=== PATIENT | male | born 1990 | race Caucasian/White ===

== ENCOUNTER → 2016-05-28 | Day surgery (SDC) | payer BC ==
[~2016-05-28] VITALS: Ht 177.8 cm; Wt 84.7 kg
[~2016-05-28] MED LIST: *ONDANSETRON 4 MG VIAL PERIprocedural Use ONLY ONE; *PROMETHAZINE 25 MG/ML VIAL PERIprocedural use ONLY ONE; *morphine SULFATE 8 MG/ML PERIprocedure ONLY ONE; ACETAMINOPHEN 1000 MG/100 ML VIAL IV ONE; ALBU17I INH; ALBU2.5I INH; ALBU8I INH; ALBUAER3 INH; AUGM875T PO; BUPIVACAINE HCL PF 0.5% 30 ML VIAL ONE; CHLORHEXIDINE GLUCONATE 4% SOLN 120 ML BTL TOP SCH; DO NOT ADM ANY ANTICOAGULANT DRUGS XX PRN; HYDR-3583 PO; HYDROmorphone HCL PF 2 MG/ML VIAL ONE; INSULIN HUMAN REGULAR 1,000 UNITS/10 ML VIAL SQ PRN; KETOROLAC TROMETHAMINE 30 MG/ML (IVP) VIAL IVP ONE; LACTATED RINGER'S 1000 ML INJ 1,000 ML IV ONE; LACTATED RINGER'S 1000 ML IV SCH; LIDOCAINE HCL 2% 50 ML VIAL ONE; METOPROLOL TARTRATE 25 MG TAB PO PRN; MIDAZOLAM HCL 2 MG/2 ML VIAL ONE; MORPHINE SULFATE 4 MG/ML INJ IV PUSH PRN; ONDANSETRON HCL 4 MG/2 ML VIAL IV PRN; ONDANSETRON HCL 4 MG/2 ML VIAL IV PUSH ONE; PERC5TAB12 PO; PRED20 PO; PROPOFOL 200 MG/20 ML AMP IV ONE; SODIUM CHLOR 0.9% 250 ML INJ 250 ML ONE; SODIUM CHLORID 0.9% 500 ML IV SCH; SODIUM CHLORIDE 0.9% FLUSH 5 ML FLUSH IVF PRN; SODIUM CHLORIDE 0.9% FLUSH 5 ML FLUSH IVF SCH; VANCOMYCIN 1000 MG/NS 250 ML (for <70 kg) IV SCH; VANCOMYCIN HCL 1000 MG VIAL ONE; ceFAZolin 2 GM PREMIX 50 ML IV SCH; ceFAZolin INJ 1,000 MG VIAL ONE; oxyCODONE/ACETAMINOPHEN 5 MG/325 MG TAB PO PRN
[2016-05-28 10:11] VITALS: BP 138/84; PULSE 98; RESP 16; TEMP 98; O2SAT 96
--- NOTE | 2016-05-28 13:13 | PD.OP ---
cc: Atif Tolbert Jr., MD Operative Report Date of Surgery: May 28, 2016 Preoperative Diagnosis: Left ring finger middle phalanx displaced comminuted unstable fracture Postoperative Diagnosis: Same Procedure: Closed reduction and pinning left ring finger middle phalanx Anesthesia: Gen. Surgeon: Atif Tolbert Bearing Press Machine Operator(s): Jason Rankin PA-C The surgical procedure was assisted by my physician enrichment assistant. My physician enrichment assistant presence was necessary throughout this case for the manipulation and positioning of the surgical extremity. My physician enrichment assistant was assisting me throughout the duration of this procedure. The skill set of a physician enrichment assistant was medically necessary to complete this procedure. During the surgical case, the surgical instruments inspector was working at the back table and the physician enrichment assistant was directly assisting me. Resident Surgeon: None Operation and Findings: Patient was seen and evaluated preoperatively and found to have a closed left ring finger middle phalanx comminuted extra-articular fracture. Informed consent was obtained after detailed discussion of risk and benefits including bleeding, infection, injury to arteries, nerves, and blood vessels, weakness and numbness of hand, and tendon rupture. Informed consent was obtained. Patient received IV antibiotics prior to incision. Timeout procedure was performed. Operative extremity was prepped with alcohol followed by Hibiclens and draped usual sterile fashion. A small longitudinal incision was made dorsal to the middle phalanx. A [place] was used as a reduction tool. Under fluoroscopy longitudinal traction was applied and the fracture was reduced within acceptable alignment. There was significant comminution of the metadiaphysis. Fluoroscopy confirmed appropriate alignment of the fracture. A 4 mm K wire was used in an oblique fashion across the metacarpal shaft to hold the reduction. Another small K wire was used perpendicular to the shaft in order to hold the reduction of the metaphyseal comminution. Final fluoroscopy revealed excellent of fracture with well-placed hardware. The wound was thoroughly irrigated with sterile saline. Closed with 3-0 nylon. Sterile dressings were applied with Xeroform, 4 x 4, soft roll, and a well padded ulna gutter splint. Patient was awakened and transferred to recovery room in stable condition POSTP-OP PLAN OF ACTIVITY Antibiotics: none Weight bearing status: NWB Dressing: Do not remove splints/cast. Dispo: expected discharge home from PACU today Atif Tolbert Jr., MD May 28, 2016 13:13
[2016-05-28 13:41] VITALS: BP 149/86; PULSE 86; RESP 18; TEMP 97.8; O2SAT 100
== END | disposition home or self-care (01) ==
LOC: HSDC 09:43
PROVIDERS: ATTEND Orthopaedic Surgery
DX: S62.625A Displaced fracture of middle phalanx of left ring finger, initial encounter for closed fracture (principal); Y04.2XXA Assault by strike against or bumped into by another person, initial encounter
CPT/HCPCS: 01820; 26727; 76000; 86850; 86900; 86901; J0131; J0690; J1170; J1885; J2250; J2270; J2405; J2550; J3010; J3370; J7050; J7120; 92950

== ENCOUNTER 2016-07-01 00:29 | Emergency (ER) | payer BC ==
[~2016-07-01] VITALS: Ht 172.7 cm; Wt 75.0 kg
[~2016-07-01 00:29] MED LIST changes: -*ONDANSETRON 4 MG VIAL PERIprocedural Use ONLY ONE; -*PROMETHAZINE 25 MG/ML VIAL PERIprocedural use ONLY ONE; -*morphine SULFATE 8 MG/ML PERIprocedure ONLY ONE; -ACETAMINOPHEN 1000 MG/100 ML VIAL IV ONE; -ALBU17I INH; -ALBU2.5I INH; -ALBU8I INH; -AUGM875T PO; -BUPIVACAINE HCL PF 0.5% 30 ML VIAL ONE; -CHLORHEXIDINE GLUCONATE 4% SOLN 120 ML BTL TOP SCH; -DO NOT ADM ANY ANTICOAGULANT DRUGS XX PRN; -HYDROmorphone HCL PF 2 MG/ML VIAL ONE; -INSULIN HUMAN REGULAR 1,000 UNITS/10 ML VIAL SQ PRN; -KETOROLAC TROMETHAMINE 30 MG/ML (IVP) VIAL IVP ONE; -LACTATED RINGER'S 1000 ML INJ 1,000 ML IV ONE; -LACTATED RINGER'S 1000 ML IV SCH; -LIDOCAINE HCL 2% 50 ML VIAL ONE; -METOPROLOL TARTRATE 25 MG TAB PO PRN; -MIDAZOLAM HCL 2 MG/2 ML VIAL ONE; -MORPHINE SULFATE 4 MG/ML INJ IV PUSH PRN; -ONDANSETRON HCL 4 MG/2 ML VIAL IV PRN; -ONDANSETRON HCL 4 MG/2 ML VIAL IV PUSH ONE; -PRED20 PO; -PROPOFOL 200 MG/20 ML AMP IV ONE; -SODIUM CHLOR 0.9% 250 ML INJ 250 ML ONE; -SODIUM CHLORID 0.9% 500 ML IV SCH; -SODIUM CHLORIDE 0.9% FLUSH 5 ML FLUSH IVF PRN; -SODIUM CHLORIDE 0.9% FLUSH 5 ML FLUSH IVF SCH; -VANCOMYCIN 1000 MG/NS 250 ML (for <70 kg) IV SCH; -VANCOMYCIN HCL 1000 MG VIAL ONE; -ceFAZolin 2 GM PREMIX 50 ML IV SCH; -ceFAZolin INJ 1,000 MG VIAL ONE; -oxyCODONE/ACETAMINOPHEN 5 MG/325 MG TAB PO PRN
[2016-07-01 00:31] VITALS: BP 121/64; PULSE 96; RESP 18; TEMP 98.3; O2SAT 96
[2016-07-01] MEDS ORDERED: oxyCODONE/ACETAMINOPHEN 5 MG/325 MG TAB PO ONE (01:00)
--- NOTE | 2016-07-01 01:02 | PD ---
HPI Chief Complaint: Fall Time Seen by Provider: 00:54 Travel History International Travel<30 days: No Contact w/Intl Traveler<30days: No Traveled to known affect area: No History of Present Illness HPI Diagnoses a 26-year-old male with history of asthma, left hand/finger injury, who presents today with complaints of left eye pain and bilateral knee pain after falling down the stairs. He states this happened 3 or 4 hours ago. Patient states he was walking his dogs and he pulled him down the stairs. He denies loss of conscious. He presents here with ecchymosis of his left eye as well as abrasions to his bilateral knees. He denies any neck pain. He denies any head pain other than his eye. There are no other complaints time my examination. The patient reports his tetanus is up-to-date. PFSH Past Medical History Asthma: Yes Blood Disorders: No Diminished Hearing: No Respiratory: Yes (asthma) Immunizations Current: Yes Past Surgical History AICD: No Joint Replacement: No Pacemaker: No Social History Alcohol Use: No Tobacco Use: No Substance Use: No Allergies-Medications (Allergen,Severity, Reaction): Coded Allergies: No Known Allergies (Verified , 07/01/16) Reported Meds & Prescriptions Reported Meds & Active Scripts Active Augmentin (Amoxicillin-Clavulanate) 875-125 mg Tab 875 Mg PO BID not for use in CrCl <30 ml/min. Percocet (Oxycodone-Acetaminophen) 5-325 mg Tab 1 Tab PO Q6H PRN Percocet (Oxycodone-Acetaminophen) 5-325 mg Tab 1 Tab PO Q4H PRN Reported Hydrocodone-Acetaminophen 10-325 mg Tab 1 Tab PO Q4H PRN Proair Hfa 8.5 GM Inh (Albuterol Sulfate) 90 Mcg/Act Aer 2 Puff INH Q4-6H PRN 108 mcg/actuation Review of Systems Except as stated in HPI: all other systems reviewed are Neg Eyes: No: Diploplia HENT: Positive: Other (left orbital pain), No: Headaches Respiratory: No: Cough, Shortness of Breath Gastrointestinal: No: Nausea, Vomiting, Abdominal Pain Musculoskeletal: Positive: Pain (bilateral knee with abrasions) Skin: Positive Other (abrasions to his bilateral knees.) Physical Exam Narrative GENERAL: Well-developed well-nourished gentleman in no acute rest her distress. The patient has obvious left periorbital ecchymosis. SKIN: Warm and dry. HEAD: No scalp or skull deformities on palpation.. Normocephalic. EYES: Pupils equal and round. No scleral icterus. No injection or drainage. Extraocular muscles were intact. The patient has periorbital ecchymosis on his left eye. ENT: No nasal bleeding or discharge. Mucous membranes pink and moist. NECK: Trachea midline. Supple CARDIOVASCULAR: Regular rate and rhythm. No murmur appreciated. RESPIRATORY: No accessory muscle use. Clear to auscultation bilaterally. GASTROINTESTINAL: Abdomen soft, non-tender, nondistended. MUSCULOSKELETAL: No obvious deformities. There is multiple abrasions to his bilateral knee areas. The patient's states that they are from 4 hours ago although they do have an older appearance. There is full range of motion of his knees. No defect. NEUROLOGICAL: Awake and alert. No obvious cranial nerve deficits. Motor grossly within normal limits. Normal speech. Data Data Last Documented VS Vital Signs Date Time Temp Pulse Resp B/P Pulse Ox O2 Delivery O2 Flow Rate FiO2 07/01/16 00:44 18 07/01/16 00:31 98.3 96 121/[address] Brain W/O Iv Contrast(Rout) (07/01/16 00:54) Knee, Ltd (1 Or 2vws) (07/01/16 00:54) Knee, Ltd (1 Or 2vws) (07/01/16 00:54) Oxycodone-Acetamin 5-325 Mg (Percocet (07/01/16 01:00) Ct Facial Bones W/O Iv Cont (07/01/16 01:44) [facility] Medical Decision Making Medical Screen Exam Complete: Yes Emergency Medical Condition: Yes Interpretation(s) Last [address] 07/01/16 0144 Signed Impressions: Service Date/Time: Friday, July 01, 2016 02:03 - CONCLUSION: 1. Minimally displaced inferior orbital wall fracture on the left. 2. Chronic sinus disease , leftward deviation of the nasal septum and possible nasal polyposis versus blood in the nasal passage. 3. Nondisplaced fracture through the nasal bridge. Nazario Arana MD Knee X-Ray 07/01/16 0054 Signed Impressions: Service Date/Time: Friday, July 01, 2016 01:23 - CONCLUSION: Negative exam. No fracture or effusion. Nazario Arana MD Knee X-Ray 07/01/1653 Signed Impressions: Service Date/Time: Friday, July 01, 2016 01:26 - CONCLUSION: Negative exam. No fracture or effusion. Nazario Arana MD Head CT 07/01/1653 Signed Impressions: Service Date/Time: Friday, July 01, 2016 01:11 - CONCLUSION: 1. No acute intracranial process or trauma. 2. Soft tissue density in the inferior left ethmoid air cells with a single foci of air in the inferomedial left orbit. Cannot exclude a fracture through the medial orbital wall/lamina papyracea. If patient has left-sided facial symptoms, may consider a dedicated CT scan of the facial bones. Nazario Arana MD Differential Diagnosis Skull fracture versus contusion versus knee fracture Narrative Course 26-year-old gentleman who reports that he fell down the stairs while walking his dogs. The patient reported it happened 3-4 hours ago. The patient has abrasions to his knees that appear older than 3-4 hours ago. X-rays of the knee show no evidence of acute fracture dislocation or effusions. The patient reports his tetanus shot is up-to-date. The patient also had left periorbital ecchymosis. A CT scan of the brain shows no evidence of acute intracranial upper mouth's however there was questionable inferior orbital fracture. Formal CT facial bones was ordered which confirms a minimally displaced inferior orbital bone fracture. There is also a nondisplaced nasal bone fracture. The patient will have a mandatory consult from X official. He is instructed to not blow his nose. He is instructed to follow up with the next facial surgeon after he gets his mandatory referral. Diagnosis Primary Impression: Fracture of inferior orbital wall Additional Impressions: nondisplaced nasal bridge fracture bilateral knee abrasions/contusions mechanical fall Additional Instructions: There will be a mandatory referral placed for a maxillofacial surgeon. A nurse will call you with the appointment. Do not blow your nose. Take antibiotics as prescribed. Med/Other Pt SpecificInfo: Prescription(s) given Scripts Amoxicillin-Clavulanate (Augmentin)875-125 mg [id number] Mg PO BID #10 TAB Ref 0 not for use in CrCl <30 ml/min. Prov:Anival Howard MD 07/01/16 Oxycodone-Acetaminophen (Percocet)5-325 mg Tab1 Tab PO Q6H PRN (PAIN) #4 TAB Ref 0 Prov:Anival Howard MD 07/01/16 Disposition: 01 DISCHARGE HOME Condition: Stable Anival Howard MD Jul 01, 2016 01:02
--- NOTE | 2016-07-01 01:33 | RADRPT ---
EXAM DATE/TIME: 07/01/2016 01:11 [facility] COMPARISON: No previous studies available for comparison. INDICATIONS : Trauma, fall. RADIATION DOSE: 37.04 CTDIvol (mGy) MEDICAL HISTORY : None SURGICAL HISTORY : None. ENCOUNTER: Initial ACUITY: 1 day PAIN SCALE: 2/10 LOCATION: cranial TECHNIQUE: Multiple contiguous axial images were obtained of the head. Using automated exposure control and adj ustment of the mA and/or kV according to patient size, radiation dose was kept as low as reasonably a chievable to obtain optimal diagnostic quality images. FINDINGS: CEREBRUM: The ventricles are normal for age. No evidence of midline shift, mass lesion, hemorrhage or acute in farction. No extra-axial fluid collections are seen. POSTERIOR FOSSA: The cerebellum and brainstem are intact. The 4th ventricle is midline. The cerebellopontine angle i s unremarkable. EXTRACRANIAL: There is soft tissue density identified in the inferior left ethmoid air cells. There is also a dot o f air along the inferomedial aspect of the left orbit possibly representing a fracture of the adjacen t lamina papyracea. SKULL: The calvaria is intact. No evidence of skull fracture. CONCLUSION: 1. No acute intracranial process or trauma. 2. Soft tissue density in the inferior left ethmoid air cells with a single foci of air in the infero medial left orbit. Cannot exclude a fracture through the medial orbital wall/lamina papyracea. If pat ient has left-sided facial symptoms, may consider a dedicated CT scan of the facial bones. Nazario Arana MD on July 01, 2016 at 1:28 Board Certified Radiologist. This report was verified electronically.
--- NOTE | 2016-07-01 01:51 | RADRPT ---
EXAM DATE/TIME: 07/01/2016 01:23 [facility] COMPARISON: KNEE LEFT LTD (1 OR 2VWS), July 01, 2016, 1:26. INDICATIONS : Bilateral knee lacerations from a fall. MEDICAL HISTORY : None. SURGICAL HISTORY : None. ENCOUNTER: Initial ACUITY: 1 day PAIN SCORE: 3/10 LOCATION: Bilateral knees FINDINGS: Two view examination of the right knee demonstrates no evidence of fracture or dislocation. Bony min eralization is normal. The suprapatellar soft tissues have a normal configuration. A prominent fabel la in the posterolateral joint space. CONCLUSION: Negative exam. No fracture or effusion. Nazario Arana MD on July 01, 2016 at 1:47 Board Certified Radiologist. This report was verified electronically.
--- NOTE | 2016-07-01 01:52 | RADRPT ---
EXAM DATE/TIME: 07/01/2016 01:26 [facility] COMPARISON: KNEE RIGHT LTD (1 OR 2 VWS), July 01, 2016, 1:23. INDICATIONS : Bilateral knee lacerations from a fall. MEDICAL HISTORY : None. SURGICAL HISTORY : None. ENCOUNTER: Initial ACUITY: 1 day PAIN SCORE: 3/10 LOCATION: Bilateral knees FINDINGS: Two view examination of the left knee demonstrates no evidence of fracture or dislocation. Bony mine ralization is normal. The suprapatellar soft tissues have a normal configuration. CONCLUSION: Negative exam. No fracture or effusion. Nazario Arana MD on July 01, 2016 at 1:49 Board Certified Radiologist. This report was verified electronically.
--- NOTE | 2016-07-01 02:34 | RADRPT ---
EXAM DATE/TIME: 07/01/2016 02:03 [facility] COMPARISON: No previous studies available for comparison. INDICATIONS : Trauma, rule out orbital wall fracture. RADIATION DOSE: 36.69 CTDIvol (mGy) MEDICAL HISTORY : None SURGICAL HISTORY : None. ENCOUNTER: Initial ACUITY: 1 day PAIN SCORE: 3/10 LOCATION: facial TECHNIQUE: Volumetric scanning of the facial bones was performed. Using automated exposure control and adjustme nt of the mA and/or kV according to patient size, radiation dose was kept as low as reasonably achiev able to obtain optimal diagnostic quality images. FINDINGS: ORBITS: Inferior orbital wall fracture without muscular entrapment. NASAL BONE: Nondisplaced nasal bone fracture ZYGOMATIC ARCHES: Symmetric without evidence of fracture. SINUSES: Mucoperiosteal thickening within the maxillary antrum and ethmoid air cells bilaterally, left greater than right.. NASAL CAVITY: Leftward deviation of the nasal septum. Soft tissue density in the nasal cavity may be related to rec ent trauma although findings could represent nasal polyposis as well. SOFT TISSUES: No radiopaque foreign bodies seen. No soft-tissue swelling is seen. INTRACRANIAL: No intracranial air seen. CRIBIFORM PLATE: Grossly intact. CONCLUSION: 1. Minimally displaced inferior orbital wall fracture on the left. 2. Chronic sinus disease, leftward deviation of the nasal septum and possible nasal polyposis versus blood in the nasal passage. 3. Nondisplaced fracture through the nasal bridge. Nazario Arana MD on July 01, 2016 at 2:27 Board Certified Radiologist. This report was verified electronically.
[2016-07-01] MEDS ORDERED: AUGM875T PO (03:08)
[2016-07-01] MEDS ORDERED: PERC5TAB12 PO (03:08)
[2016-07-01] MEDS ORDERED: ACETAMINOPHEN/HYDROcodone 325 MG/5 MG TAB PO ONE (03:15)
== END 2016-07-01 03:29 | disposition home or self-care (01) ==
LOC: NEPE 00:29
DX: S02.2XXA Fracture of nasal bones, initial encounter for closed fracture (principal); S80.211A Abrasion, right knee, initial encounter; S80.212A Abrasion, left knee, initial encounter; Y93.K1 Activity, walking an animal; Y93.9 Activity, unspecified; Y92.89 Other specified places as the place of occurrence of the external cause; Y99.8 Other external cause status; W10.8XXA Fall (on) (from) other stairs and steps, initial encounter
CPT/HCPCS: 70450; 70486; 73560; 99283

== ENCOUNTER 2016-07-01 06:00 | Emergency (ER) | payer BC ==
[~2016-07-01] VITALS: Ht 172.7 cm; Wt 75.0 kg
[~2016-07-01 06:00] MED LIST changes: +AUGM875T PO
[2016-07-01 06:01] VITALS: BP 126/68; PULSE 92; RESP 20; TEMP 98; O2SAT 98
--- NOTE | 2016-07-01 06:17 | PD ---
HPI Chief Complaint: Pain: Acute or Chronic Time Seen by Provider: 06:13 Travel History International Travel<30 days: No Contact w/Intl Traveler<30days: No Traveled to known affect area: No History of Present Illness HPI Patient is a 26-year-old male who was seen early tonight by my partner Dr. Howard for facial fractures. He was discharged with a prescription for 4 Percocets. He went to a local pharmacy to fill them and Dr. Howard received a call that he had allegedly falsified a Percocet prescription and added a 0 onto it. Patient has a recent history of forearm fractures be followed by Geraldo Mosqueda. E4 shows that he had a prescription for 90 Percocet 5 tablets filled on May 30. Patient on arrival states he still in significant pain and was told by the pharmacy to come back to the emergency department for a prescription for new medicine. He states nothing else is change and sees left he just has pain. Denies any additional injuries. Patient states the injury occurred when he was walking his dog down the stairs and the dog pulled him forward in the leash tied that his arm and he fell forward down the stairs. This happened approximately 6 hours ago. PFSH Past Medical History Asthma: Yes Blood Disorders: No Diminished Hearing: No Respiratory: Yes (asthma) Immunizations Current: Yes Influenza Vaccination: No Past Surgical History AICD: No Joint Replacement: No Pacemaker: No Social History Alcohol Use: No Tobacco Use: No Substance Use: No Allergies-Medications (Allergen,Severity, Reaction): Coded Allergies: No Known Allergies (Verified , 07/01/16) Reported Meds & Prescriptions Reported Meds & Active Scripts Active Augmentin (Amoxicillin-Clavulanate) 875-125 mg Tab 875 Mg PO BID not for use in CrCl <30 ml/min. Percocet (Oxycodone-Acetaminophen) 5-325 mg Tab 1 Tab PO Q6H PRN Percocet (Oxycodone-Acetaminophen) 5-325 mg Tab 1 Tab PO Q4H PRN Reported Hydrocodone-Acetaminophen 10-325 mg Tab 1 Tab PO Q4H PRN Proair Hfa 8.5 GM Inh (Albuterol Sulfate) 90 Mcg/Act Aer 2 Puff INH Q4-6H PRN 108 mcg/actuation Review of Systems Except as stated in HPI: all other systems reviewed are Neg Physical Exam Narrative GENERAL: Well-nourished, well-developed patient. SKIN: Warm and dry. He has bilateral abrasions to the knees. HEAD: Normocephalic. Has periorbital ecchymosis on the left eye. No swelling is appreciated. EYES: No scleral icterus. No injection or drainage. NECK: Supple, trachea midline. No JVD or lymphadenopathy. CARDIOVASCULAR: Regular rate and rhythm without murmurs, gallops, or rubs. RESPIRATORY: Breath sounds equal bilaterally. No accessory muscle use. GASTROINTESTINAL: Abdomen soft, non-tender, nondistended. MUSCULOSKELETAL: No cyanosis, or edema. BACK: Nontender without obvious deformity. No CVA tenderness. Data Data Last Documented VS Vital Signs Date Time Temp Pulse Resp B/P Pulse Ox O2 Delivery O2 Flow Rate FiO2 07/01/16 06:01 98.0 92 20 126/68 98 MDM Medical Decision Making Medical Screen Exam Complete: Yes Emergency Medical Condition: Yes Differential Diagnosis Malingering, opiate addiction, facial fractures, facial pain, forearm fracture. Narrative Course Patient was roomed in the emergency department. Nurses of come to me and stated that if he does not get a pain prescription he will re-sign in for an asthma exacerbation until he does get a pain prescription. I informed the patient that he has allegedly committed a felon in [facility] as it is illegal to falsify prescription for narcotics. He states he did no such thing and he has at all on tape. I told him that it is point he needs to get up at the pharmacy. Given his E force of 90 tablets filled for Percocet and in early May I'm disinclined to give him any more narcotics at this time. He appears well and in no apparent distress. I did offer him ibuprofen 600 mg in the emergency department and told him I would not be writing him any more scripts. He states to me "I didn't falsify any records to proceed". At which time he eloped from the room and I asked security to escort him from the hospital. Diagnosis Primary Impression: Face pain Disposition: 01 DISCHARGE HOME Condition: Stable Seymour Guajardo MD Jul 01, 2016 06:17
== END 2016-07-01 06:20 | disposition home or self-care (01) ==
LOC: NEPC 06:00
DX: R51 Headache (principal)
CPT/HCPCS: 99283

== ENCOUNTER 2017-08-21 05:04 | Emergency (ER) | payer SELFPAY ==
[~2017-08-21] VITALS: Ht 177.8 cm; Wt 88.0 kg
[2017-08-21 05:07] VITALS: BP 136/65; PULSE 117; RESP 18; TEMP 98.4; O2SAT 97
[2017-08-21] MEDS ORDERED: HYDR1OIN6 TOPICAL (05:40)
[2017-08-21] MEDS ORDERED: diphenhydrAMINE HCL 50 MG CAP PO ONE (05:45)
--- NOTE | 2017-08-21 05:45 | PD ---
HPI Chief Complaint: Edema Time Seen by Provider: 05:31 Travel History International Travel<30 days: No Contact w/Intl Traveler<30days: No Traveled to known affect area: No History of Present Illness HPI 27-year-old white male presents emergency department with a 1 day history of left cheek swelling. He does not know any causative event or insect bite. He states that he had noticed an area of redness, swelling and mild pruritus under his left eye. He has been rubbing it. He denies any vision changes. No ocular pain. No glasses or contacts. He has had no fever chills. No recent illness. No other rashes or lesions. PFSH Past Medical History Asthma: Yes Blood Disorders: No Diminished Hearing: No Respiratory: Yes (asthma) Immunizations Current: Yes Tetanus Vaccination: < 5 Years Influenza Vaccination: No Past Surgical History Surgical History: No Previous Surgery AICD: No Joint Replacement: No Pacemaker: No Social History Alcohol Use: No Tobacco Use: Yes Substance Use: No Allergies-Medications (Allergen,Severity, Reaction): Coded Allergies: No Known Allergies (Verified Adverse Reaction, Unknown, 08/21/17) Reported Meds & Prescriptions Reported Meds & Active Scripts Active Augmentin (Amoxicillin-Clavulanate) 875-125 mg Tab 875 Mg PO BID not for use in CrCl <30 ml/min. Percocet (Oxycodone-Acetaminophen) 5-325 mg Tab 1 Tab PO Q6H PRN Percocet (Oxycodone-Acetaminophen) 5-325 mg Tab 1 Tab PO Q4H PRN Reported Hydrocodone-Acetaminophen 10-325 mg Tab 1 Tab PO Q4H PRN Proair Hfa 8.5 GM Inh (Albuterol Sulfate) 90 Mcg/Act Aer 2 Puff INH Q4-6H PRN 108 mcg/actuation Review of Systems General / Constitutional: No: Fever Eyes: No: Visual changes HENT: No: Headaches Cardiovascular: No: Chest Pain or Discomfort Respiratory: No: Shortness of Breath Gastrointestinal: No: Abdominal Pain Genitourinary: No: Dysuria Musculoskeletal: No: Pain Skin: Positive Rash, Positive Itching Neurologic: No: Weakness Psychiatric: No: Depression Endocrine: No: Polydipsia Hematologic/Lymphatic: No: Easy Bruising Physical Exam Narrative GENERAL: Well-developed, well-nourished in no acute distress. Nontoxic appearing. HEAD: Normocephalic, patient has mild swelling to the left cheek just underneath the lower eyelid. It is mildly erythematous but no warmth. There is some boggy edema. No tenderness. EYES: Pupils equal round and reactive. Extraocular motions intact. No scleral icterus. No injection or drainage. ENT: TMs clear without erythema. The external auditory canals clear. Nose: clear . Posterior pharynx is pink and moist. No tonsillar edema or exudate. Uvula midline. Airway patent. NECK: Trachea midline.Supple, nontender, moves head freely. No central bony tenderness or spasm. CARDIOVASCULAR: Regular rate and rhythm without murmurs, gallops, or rubs. RESPIRATORY: Clear to auscultation. Breath sounds equal bilaterally. No wheezes , rales, or rhonchi. GASTROINTESTINAL: Abdomen soft, non-tender, nondistended. No hepato-splenomegaly , or palpable masses. No guarding. EXTREMITIES: No clubbing, cyanosis, or edema. No joint tenderness, effusion, or edema noted. BACK: Nontender without deformity or crepitance. No flank tenderness. Data Data Last Documented VS Vital Signs Date Time Temp Pulse Resp B/P (MAP) Pulse Ox O2 Delivery O2 Flow Rate FiO2 08/21/17 05:07 98.4 117 18 136/65 (88) 97 Orders Orders Diphenhydramine (Benadryl) (08/21/17 05:45) Ed Discharge Order (08/21/17 05:37) [facility] Medical Decision Making Medical Screen Exam Complete: Yes Emergency Medical Condition: Yes Medical Record Reviewed: Yes Differential Diagnosis MDM: High Differential diagnoses: Abscess, folliculitis, cellulitis, lymphangitis, abrasion, contact dermatitis Narrative Course Patient is given Benadryl 50 mg p.o. Patient appears to have a local allergic reaction. Diagnosis Primary Impression: Local allergic reaction Patient Instructions: General Instructions Additional Instructions: Rest. Cool compress. 50 mg of Benadryl every 6 hours. Hydrocortisone cream. Recheck with a primary care doctor in the next 2-3 days. Return to the ER if any problems. Med/Other Pt SpecificInfo: Prescription(s) given Scripts Hydrocortisone Acetate (Hydrocortisone) 1 % Oint...g. 1 APPLIC TOPICAL TID, #1 Prov: Barrett Amaya MD 08/21/17 Disposition: 01 DISCHARGE HOME Condition: Stable Maxim Kothari Aug 21, 2017 05:45
== END 2017-08-21 06:03 | disposition home or self-care (01) ==
LOC: NEPD 05:04
DX: T78.40XA Allergy, unspecified, initial encounter (principal); J45.909 Unspecified asthma, uncomplicated; Z72.0 Tobacco use
CPT/HCPCS: 99283; Q0163